=== PATIENT | male | born 1995 | race Caucasian/White ===

== ENCOUNTER 2017-03-06 15:27 | Emergency (ER) | payer OTHER ==
[2017-03-06 15:41] VITALS: BP 159/96; PULSE 84; RESP 16; TEMP 98.4; O2SAT 98
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
== END 2017-03-06 16:00 | disposition home or self-care (01) ==
DX: S06.0X0A Concussion without loss of consciousness, initial encounter (principal); Z87.891 Personal history of nicotine dependence; V68.5XXA Driver of heavy transport vehicle injured in noncollision transport accident in traffic accident, initial encounter; Y92.69 Other specified industrial and construction area as the place of occurrence of the external cause; Y99.0 Civilian activity done for income or pay